=== PATIENT | male | born 1965 | race Caucasian/White ===

== ENCOUNTER 2021-04-10 22:55 | Inpatient (IN) | payer SELFPAY ==
[~2021-04-10 22:55] MED LIST: Heparin 1,000 UNITS/ML VIAL ONE
[2021-04-10] MEDS ORDERED: Vancomycin 1 GM/200 ML BAG ONE (23:22)
[2021-04-10] MEDS ORDERED: Ondansetron PF 4 MG/2 ML Vial IVP PRN (23:50)
[2021-04-10] MEDS ORDERED: Bisacodyl 5 MG TAB PO PRN (23:50)
[2021-04-10] MEDS ORDERED: hydrALAZINE 20 MG/ML VIAL SLOW IVP PRN (23:53)
[2021-04-11 01:45] VITALS: BMI 21.5
[2021-04-11] MEDS: Morphine 4 MG/ML VIAL SLOW IVP PRN ×4 (02:11→20:22)
[2021-04-11 02:48] LABS: Potassium, Urine Less than 10.0 mmol/L; Sodium, Urine Less than 20 mmol/L (Not Available)
[2021-04-11 06:33] LABS: Albumin (w/Testosterone Panel) 2.4 g/dL
[2021-04-11 06:36] LABS: Anion Gap 7 mmol/L (10-20); BUN (Urea Nitrogen) 12 mg/dL (8.4-25.7); Calc. Creatinine Clearance 110 mL/min (70-130); Calcium 7.9 mg/dL (7.8-10.44); Carbon Dioxide 25 mmol/L (22-29); Chloride 106 mmol/L (98-107); Glucose 110 mg/dL (70-105); Potassium 4.2 mmol/L (3.5-5.1); Sodium 134 mmol/L (136-145)
[2021-04-11 06:53] LABS: Band 25 % (5-11); Eosinophils 2 % (0-10); Hemoglobin 11.6 g/dL (14.0-18.0); Hypochromia SLIGHT = 6-15 cells (100X) (0-5/hpf); Lymphocytes 5 % (21-51); MDiff Complete? YES; Macrocytosis SLIGHT = 6-15 cells (100X) (0-5/hpf); Mean Corpuscular HGB CONC 33.2 g/dL (32.0-36.0); Mean Corpuscular Hemoglobin 34.1 pg (27.0-31.0); Mean Platelet Volume 8.4 fL (7.4-10.4); Metamyelocyte 1 % (0-0); Monocytes 17 % (0-10); Neutrophil 48 % (42-75); Platelet Count 51 thou/uL (130-400); Platelet Morphology Comment Appears Decreased; RBC Distribution Width 13.7 % (11.5-14.5); Reactive Lymphocytes 2 % (0-10); White Blood Cell (WBC) Count 6.2 thou/uL (4.8-10.8)
[2021-04-11 06:59] LABS: Sex Hormone Binding Globulin 120.4 nmol/L (11-78); Testosterone, Free 44.2 pg/mL (47-244); Testosterone, Total 521.9 ng/dL (221-716)
[2021-04-11] MEDS ORDERED: Vancomycin 1.5 GRAM/300 ML BAG 1.5 GM in Premix Bag 1 BAG IVPB SCH (09:00)
[2021-04-11] MEDS: Famotidine 20 MG TAB PO SCH ×2 (10:06→20:23)
[2021-04-11] MEDS ORDERED: Magnevist 469MG/ML 20 ML VIAL ONE ×2 (12:11→12:12)
[2021-04-11 14:45] LABS: INR-International Normal Ratio 1.3; Prothrombin Time 16.1 sec (12.0-14.7)
[2021-04-11] MEDS: cefTRIAXone\\ROCEPHIN 2 GM in Sodium Chloride 0.9% 100 ML IVPB SCH (17:21)
[2021-04-11] MEDS: HYDROcodone/Acetaminophen 10/325 mg Tablet PO PRN (17:21)
[2021-04-11 17:27] LABS: Syphilis Antibody Nonreactive (Nonreactive); Syphilis Antibody Index 0.06 S/CO (<1.00 Non-Reactive)
[2021-04-11 17:28] LABS: HIV (1/2) Antibody/Antigen Non-Reactive (NonReactive); HIV 1/2 INDEX 0.09 S/CO (<1.00)
[2021-04-11 17:32] LABS: Hep C IgG Ab Reflex HepC Qnt (NonReactive); Hep C Index 10.11 S/CO (0-0.79)
[2021-04-11] MEDS ORDERED: Vancomycin HCl 1.25 GM in Sodium Chloride 0.9% 250 ML 250 ML IVPB SCH (21:00)
[2021-04-11] MEDS: Vancomycin 1.5 GRAM/300 ML BAG 1.5 GM in Premix Bag 1 BAG IVPB SCH (22:44)
[2021-04-12 00:28] LABS: SARS-CoV-2 PCR by NAA Not Detected (NotDetected)
[2021-04-12] MEDS: Morphine 4 MG/ML VIAL SLOW IVP PRN ×3 (05:21→15:14)
[2021-04-12] MEDS: HYDROcodone/Acetaminophen 10/325 mg Tablet PO PRN ×2 (05:22→21:28)
[2021-04-12 07:09] LABS: INR-International Normal Ratio 1.3; PTT 34.5 sec (22.9-36.1); Prothrombin Time 16.6 sec (12.0-14.7)
[2021-04-12] MEDS: Famotidine 20 MG TAB PO SCH ×2 (09:16→21:28)
[2021-04-12] MEDS: Vancomycin 1.5 GRAM/300 ML BAG 1.5 GM in Premix Bag 1 BAG IVPB SCH ×2 (09:16→21:29)
[2021-04-12] MEDS: cefTRIAXone\\ROCEPHIN 2 GM in Sodium Chloride 0.9% 100 ML IVPB SCH (16:56)
[2021-04-12] MEDS: Cyclobenzaprine 10 MG TAB PO PRN (16:57)
[2021-04-12] MEDS: Zolpidem Tartrate 5 MG TAB PO PRN (21:29)
[2021-04-12 21:41] LABS: Vancomycin, Trough 7.9 ug/mL
[2021-04-12] MEDS: VANCOMYCIN 1.25 GM/250 ML BAG 1.25 GM in Premix Bag 1 BAG IVPB SCH (23:20)
[2021-04-13] MEDS: HYDROcodone/Acetaminophen 10/325 mg Tablet PO PRN (06:37)
[2021-04-13] MEDS: VANCOMYCIN 1.25 GM/250 ML BAG 1.25 GM in Premix Bag 1 BAG IVPB SCH ×3 (06:39→22:25)
[2021-04-13] MEDS: Famotidine 20 MG TAB PO SCH ×2 (08:17→21:07)
[2021-04-13] MEDS: Morphine 4 MG/ML VIAL SLOW IVP PRN ×3 (11:11→21:03)
[2021-04-13] MEDS: Cyclobenzaprine 10 MG TAB PO PRN ×2 (15:36→21:07)
[2021-04-13] MEDS: cefTRIAXone\\ROCEPHIN 2 GM in Sodium Chloride 0.9% 100 ML IVPB SCH (17:27)
[2021-04-13] MEDS: Zolpidem Tartrate 5 MG TAB PO PRN (21:07)
[2021-04-13 21:42] LABS: Vancomycin, Trough 13.2 ug/mL
[2021-04-14] MEDS: VANCOMYCIN 1.25 GM/250 ML BAG 1.25 GM in Premix Bag 1 BAG IVPB SCH ×2 (06:44→14:52)
[2021-04-14 07:08] VITALS: TEMP 99
[2021-04-14] MEDS: Morphine 4 MG/ML VIAL SLOW IVP PRN ×2 (08:23→14:54)
[2021-04-14] MEDS: Famotidine 20 MG TAB PO SCH (08:23)
[2021-04-14] MEDS: Cyclobenzaprine 10 MG TAB PO PRN (10:51)
[2021-04-14] MEDS: HYDROcodone/Acetaminophen 10/325 mg Tablet PO PRN ×2 (13:32)
[2021-04-14 14:14] LABS: HCV log10 6.041 (.); Hep C PCR-Quant 1100000 IU/mL (.)
[2021-04-14 16:39] VITALS: BP 132/78
[2021-04-14] MEDS: cefTRIAXone\\ROCEPHIN 2 GM in Sodium Chloride 0.9% 100 ML IVPB SCH (17:22)
== END 2021-04-14 18:29 | disposition home or self-care (01) | DRG 540 ==
LOC: ERS 22:55 → T4-A 23:50 → OBSVTOIN 04-12 10:49
PROVIDERS: ADMIT Internal Medicine; ATTEND Internal Medicine
PROC: 02HV33Z Insertion of Infusion Device into Superior Vena Cava, Percutaneous Approach (ICD-10-PCS; principal; 2021-04-12)
PROC: B548ZZA Ultrasonography of Superior Vena Cava, Guidance (ICD-10-PCS; 2021-04-12)
DX: M46.26 Osteomyelitis of vertebra, lumbar region (principal); E87.1 Hypo-osmolality and hyponatremia; R78.81 Bacteremia; Z91.5 Personal history of self-harm; G89.29 Other chronic pain; B18.2 Chronic viral hepatitis C; D69.59 Other secondary thrombocytopenia; Z20.822 Contact with and (suspected) exposure to COVID-19; I10 Essential (primary) hypertension; Z96.659 Presence of unspecified artificial knee joint; M46.46 Discitis, unspecified, lumbar region; M47.26 Other spondylosis with radiculopathy, lumbar region; M48.061 Spinal stenosis, lumbar region without neurogenic claudication; Z96.652 Presence of left artificial knee joint; K74.60 Unspecified cirrhosis of liver; F43.10 Post-traumatic stress disorder, unspecified; B95.4 Other streptococcus as the cause of diseases classified elsewhere; Z79.899 Other long term (current) drug therapy; Z87.891 Personal history of nicotine dependence; Z79.890 Hormone replacement therapy
CPT/HCPCS: 36415; 36569; 72142; 72158; 80048; 80202; 83930; 83935; 84133; 84270; 84300; 84403; 84443; 85025; 85610; 85652; 85730; 86140; 86780; 86803; 87040; 87389; 87522; 87635; 93306; 96365; 96366; 96375; 96376; A9579; C1751; G0378; J0696; J1644; J2270; J3370; J3490; U0003; U0005